=== PATIENT | female | born 1990 | race African-American/Black ===

== ENCOUNTER 2019-03-30 18:01 | Emergency (ER) | payer OTHER ==
[~2019-03-30] VITALS: Ht 144.8 cm; Wt 55.8 kg
--- NOTE | 2019-03-30 18:12 | NUR ---
SALOMÓN FOR C/O ABD PAIN, N/V. PT 4WKS . - ELVIRA Addendum: 03/30/19 at 2018 by LAURYN - DIARRHEA
[2019-03-30] MEDS: IV NS 0.9% 1,000 ML BAG IV ONE (18:29)
[2019-03-30] MEDS ORDERED: ONDANSETRON HCL/PF 4 MG/2 ML VIAL ONE (18:30)
[2019-03-30] MEDS: ONDANSETRON HCL/PF 4 MG/2 ML VIAL IVP ONE (18:30)
[2019-03-30 18:32] LABS: BASOPHILS % (AUTO) 0.4 % (0.0-2.0); EOSINOPHILS % (AUTO) 0.1 % (0.0-6.0); HEMATOCRIT 41 % (33-45); HEMOGLOBIN 14.1 g/dL (11.5-14.8); LYMPHOCYTES # (AUTO) 0.9 /CMM (0.8-4.8); LYMPHOCYTES % (AUTO) 7.6 % (20.0-44.0); MEAN CORPUSCULAR HGB CONC 34 g/dl (31.0-36.0); MEAN CORPUSCULAR VOLUME 92 fL (82-100); MONOCYTES # (AUTO) 0.3 /CMM (0.1-1.30); MONOCYTES % (AUTO) 2.3 % (2.0-12.0); NEUTROPHILS # (AUTO) 10.4 /CMM (1.8-8.9); NEUTROPHILS % (AUTO) 89.6 % (43.0-81.0); PLATELET COUNT (AUTO) 396 /CMM (150-450); RED BLOOD CELL COUNT(AUTO) 4.47 MIL/uL (4.0-5.2); WHITE BLOOD COUNT (AUTO) 11.6 K/uL (4.3-11.0)
--- NOTE | 2019-03-30 18:40 | NUR ---
US TECH AT THE BED SIDE
[2019-03-30 18:45] LABS: CREATININE 0.8 mg/dL (0.6-1.3); POTASSIUM 3.3 mmol/L (3.5-5.1)
[2019-03-30 19:05] LABS: ALBUMIN 4.8 g/dL (3.4-5.0); BILIRUBIN,DIRECT 0.1 mg/dL (0.0-0.2); BILIRUBIN,TOTAL 0.4 mg/dL (0.2-1.0); TOTAL PROTEIN, SERUM 9.3 g/dL (6.4-8.2)
[2019-03-30] MEDS ORDERED: METOCLOPRAMIDE HCL 10 MG/2 ML VIAL ONE (19:14)
[2019-03-30] MEDS ORDERED: MAG HYDROX/AL HYDROX/SIMETH 30 ML UDC ONE (19:14)
[2019-03-30] MEDS: MAG HYDROX/AL HYDROX/SIMETH 30 ML UDC PO ONE (19:21)
[2019-03-30] MEDS: METOCLOPRAMIDE HCL 10 MG/2 ML VIAL IV ONE (19:21)
[2019-03-30] MEDS ORDERED: HYDROMORPHONE 1 MG/1 ML DISP.SYRIN ONE (19:44)
[2019-03-30] MEDS: HYDROMORPHONE INJ 2 MG/ML DISP.SYRIN IV ONE (19:51)
--- NOTE | 2019-03-30 20:16 | NUR ---
IV removed. Catheter intact and site benign. Pressure and 4x4 applied to site. No bleeding noted.Patient discharged to home in stable condition. Rx and Written and verbal after care instructions given. Patient verbalizes understanding of instruction.
[2019-03-30 20:22] VITALS: BP 121/85
== END 2019-03-30 20:15 | disposition home or self-care (01) ==
LOC: ER 18:04
DX: O21.0 Mild hyperemesis gravidarum (principal); Z3A.01 Less than 8 weeks gestation of pregnancy
CPT/HCPCS: 36415; 76805; 80048; 80076; 83690; 84702; 85025; 96361; 96374; 96375; 99284; J1170; J2405; J2765; J7030

== ENCOUNTER 2019-04-10 18:20 | Emergency (ER) | payer OTHER ==
[~2019-04-10] VITALS: Ht 149.9 cm; Wt 54.4 kg
[2019-04-10 18:39] VITALS: BP 131/75
[2019-04-10] MEDS ORDERED: ACETAMINOPHEN ES 500 MG TABLET PO ONE (19:00)
[2019-04-10] MEDS ORDERED: ACETAMINOPHEN ES 500 MG TABLET ONE (19:02)
== END 2019-04-10 19:17 | disposition home or self-care (01) ==
LOC: ER 18:20
DX: O9A.211 Injury, poisoning and certain other consequences of external causes complicating pregnancy, first trimester (principal); S16.1XXA Strain of muscle, fascia and tendon at neck level, initial encounter; S39.012A Strain of muscle, fascia and tendon of lower back, initial encounter; Z3A.01 Less than 8 weeks gestation of pregnancy; V49.49XA Driver injured in collision with other motor vehicles in traffic accident, initial encounter; Y93.89 Activity, other specified; Y92.488 Other paved roadways as the place of occurrence of the external cause; Y99.8 Other external cause status